=== PATIENT | male | born 1960 | race Caucasian/White ===

== ENCOUNTER → 2016-06-26 | Outpatient (CLI) | payer MEDICARE, MEDICAID ==
[~2016-06-26] MED LIST: ALLO300 PO; AMIT50TA3 PO; AMLO-512 PO; AMOX1TAB16 PO; BACTDSB PO; GABA-529 PO; LOSA50TA37 PO; OXYC-341 PO; SANTO TP
[2016-06-26 15:57] VITALS: BP 116/64
== END | disposition home or self-care (01) ==
LOC: HBOWC 14:02
PROVIDERS: ATTEND Emergency Medicine
DX: L89.314 Pressure ulcer of right buttock, stage 4 (principal); L89.324 Pressure ulcer of left buttock, stage 4; G82.20 Paraplegia, unspecified; I71.4 Abdominal aortic aneurysm, without rupture; I10 Essential (primary) hypertension; F17.210 Nicotine dependence, cigarettes, uncomplicated; Z86.718 Personal history of other venous thrombosis and embolism
CPT/HCPCS: 97597

== ENCOUNTER 2016-07-10 15:27 | Inpatient (IN) | payer MEDICARE, MEDICAID ==
[~2016-07-10] VITALS: Ht 180.3 cm; Wt 98.3 kg
[~2016-07-10 15:27] MED LIST changes: -AMIT50TA3 PO; -LIDOCAINE HCL 2% 5 ML JELLY TP ONE
[2016-07-10] MEDS ORDERED: AMIT50TA3 PO (15:58)
[2016-07-10] MEDS ORDERED: VANCOMYCIN HCL 1 GM/D5% WATER 200 ML IV ONE ×2 (16:30→23:00)
[2016-07-10 16:41] LABS: EOSINOPHILS % (AUTO) 1.1 % (1.0-6.0); HEMATOCRIT 35.2 % (41-53); HEMOGLOBIN 11.4 g/dL (13.5-17.5); LYMPHOCYTES # (AUTO) 1.3 K/uL (1.0-4.8); LYMPHOCYTES % (AUTO) 11.1 % (22.0-44.0); MEAN CORPUSCULAR HEMOGLOBIN 28.2 pg (26.0-34.0); MEAN CORPUSCULAR HGB CONC 32.4 G/dL (31.0-37.0); MEAN CORPUSCULAR VOLUME 87 fL (80-100); MONOCYTES # (AUTO) 0.7 K/uL (0.1-1.0); MONOCYTES % (AUTO) 5.9 % (2.0-9.0); NEUTROPHILS # (AUTO) 9.9 K/uL (1.8-7.7); NEUTROPHILS % (AUTO) 81.9 % (40.0-70.0); PLATELET COUNT (AUTO) 291 K/uL (150-450); RED BLOOD CELL COUNT(AUTO) 4.04 MIL/uL (4.50-5.90); RED CELL DISTRIBUTION WIDTH 15.7 % (11.5-14.5); WHITE BLOOD COUNT (AUTO) 12.1 K/uL (4.5-11.0)
[2016-07-10 16:50] LABS: ANION GAP 8 mmol/L (8-16); CALCIUM, TOTAL 8.6 mg/dL (8.8-10.5); CARBON DIOXIDE 26 mmol/L (22-29); CHLORIDE 98 mmol/L (98-107); GLOMERULAR FILTR. RATE CALC > 60 mL/min (>60); POTASSIUM 4.4 mmol/L (3.5-5.1); SODIUM SERUM 132 mmol/L (136-145); UREA NITROGEN, BLOOD 25 mg/dL (7-18)
[2016-07-10 16:56] LABS: ALANINE AMINOTRANSFERASE 32 U/L (12-78); ALBUMIN 2.8 g/dL (3.4-5.0); ASPARTATE AMINOTRANSFERASE 25 U/L (15-37); BILIRUBIN,TOTAL 0.2 mg/dL (0.1-1.0); TOTAL PROTEIN, SERUM 7.7 g/dL (6.4-8.2)
[2016-07-10] MEDS ORDERED: KETOROLAC TROMETHAMINE 30 MG/ML VIAL IVP ONE (17:15)
[2016-07-10] MEDS ORDERED: ONDANSETRON HCL 4 MG/2 ML VIAL IVP ONE (17:15)
[2016-07-10] MEDS ORDERED: MORPHINE SULFATE 4 MG/ML SYRINGE IVP ONE (17:15)
[2016-07-10] MEDS ORDERED: SODIUM CHLORIDE 0.9% 1,000 ML IV ONE (17:15)
[2016-07-10] MEDS ORDERED: ONDANSETRON HCL 4 MG/2 ML VIAL IVP PRN ×2 (17:30→22:00)
[2016-07-10] MEDS ORDERED: 0.9% SODIUM CHLORIDE 10 ML SYRINGE IVP PRN ×2 (17:30→22:00)
[2016-07-10] MEDS ORDERED: ACETAMINOPHEN 325 MG TABLET PO PRN ×2 (17:30→19:15)
[2016-07-10 18:59] VITALS: BP 127/61
[2016-07-10 19:59] VITALS: BP 112/49
[2016-07-10] MEDS ORDERED: INFLUENZA VIRUS VACCINE QVS 2016-17 (3YR+)/PF 60 MCG/0.5 ML SYRINGE IM ONE (20:00)
[2016-07-10] MEDS: GABAPENTIN 100 MG CAPSULE PO SCH (20:13)
[2016-07-10] MEDS ORDERED: AmLODIPine BESYLATE 10 MG TABLET PO SCH (21:00)
[2016-07-10] MEDS: SODIUM CHLORIDE 0.9% 1,000 ML IV SCH (22:34)
[2016-07-10] MEDS: DOCUSATE SODIUM 100 MG CAPSULE PO SCH (22:34)
[2016-07-10] MEDS: OxyCODONE HCL/ACETAMINOPHEN 5-325 MG TABLET PO PRN (22:35)
[2016-07-10 23:07] VITALS: BP 93/53
[2016-07-11] MEDS: OxyCODONE HCL/ACETAMINOPHEN 5-325 MG TABLET PO PRN ×3 (04:12→20:33)
[2016-07-11 04:18] VITALS: BP 95/49
[2016-07-11 08:09] VITALS: BP 106/63
[2016-07-11 08:21] LABS: BASOPHILS % (AUTO) 0.8 % (0.0-2.0); EOSINOPHILS % (AUTO) 2.3 % (1.0-6.0); HEMATOCRIT 34.3 % (41-53); HEMOGLOBIN 10.8 g/dL (13.5-17.5); LYMPHOCYTES # (AUTO) 1.4 K/uL (1.0-4.8); LYMPHOCYTES % (AUTO) 16.1 % (22.0-44.0); MEAN CORPUSCULAR HEMOGLOBIN 27.9 pg (26.0-34.0); MEAN CORPUSCULAR HGB CONC 31.6 G/dL (31.0-37.0); MEAN CORPUSCULAR VOLUME 88 fL (80-100); MONOCYTES # (AUTO) 0.7 K/uL (0.1-1.0); MONOCYTES % (AUTO) 7.9 % (2.0-9.0); NEUTROPHILS # (AUTO) 6.4 K/uL (1.8-7.7); NEUTROPHILS % (AUTO) 72.9 % (40.0-70.0); PLATELET COUNT (AUTO) 281 K/uL (150-450); RED BLOOD CELL COUNT(AUTO) 3.89 MIL/uL (4.50-5.90); RED CELL DISTRIBUTION WIDTH 15.6 % (11.5-14.5); WHITE BLOOD COUNT (AUTO) 8.7 K/uL (4.5-11.0)
[2016-07-11] MEDS: VANCOMYCIN HCL 1.25 GM in DEXTROSE 5%-WATER 250 ML IV SCH ×2 (08:31→20:34)
[2016-07-11] MEDS: ALLOPURINOL 300 MG TABLET PO SCH (08:32)
[2016-07-11] MEDS: PANTOPRAZOLE SODIUM 40 MG/VIAL IVP SCH (08:32)
[2016-07-11] MEDS: GABAPENTIN 100 MG CAPSULE PO SCH ×2 (08:32→20:33)
[2016-07-11] MEDS: AMITRIPTYLINE HCL 50 MG TABLET PO SCH (08:32)
[2016-07-11] MEDS: DOCUSATE SODIUM 100 MG CAPSULE PO SCH ×2 (08:32→20:33)
[2016-07-11] MEDS: HEPARIN SODIUM,PORCINE 5,000 UNITS/ML VIAL SQ SCH ×3 (08:33→20:33)
[2016-07-11] MEDS: SODIUM CHLORIDE 0.9% 1,000 ML IV SCH ×2 (08:38→16:23)
[2016-07-11 08:53] LABS: ANION GAP 7 mmol/L (8-16); CALCIUM, TOTAL 8.4 mg/dL (8.8-10.5); CARBON DIOXIDE 27 mmol/L (22-29); CHLORIDE 101 mmol/L (98-107); CREATININE 1.08 mg/dL (0.60-1.30); GLOMERULAR FILTR. RATE CALC > 60 mL/min (>60); POTASSIUM 4.3 mmol/L (3.5-5.1); SODIUM SERUM 135 mmol/L (136-145); UREA NITROGEN, BLOOD 24 mg/dL (7-18)
[2016-07-11] MEDS ORDERED: LOSARTAN POTASSIUM 50 MG TABLET PO SCH ×2 (09:00)
[2016-07-11 11:00] VITALS: BP 124/51
[2016-07-11] MEDS: MULTIVITAMINS WITH MINERALS, THERAPEUTIC TABLET PO SCH (13:32)
[2016-07-11] MEDS: AMINO ACIDS/PROTEIN HYDROLYS 30 ML TUBE PO SCH (18:12)
[2016-07-11 19:15] VITALS: BP 145/74
[2016-07-11 23:41] VITALS: BP 149/67
[2016-07-12 04:00] VITALS: BP 127/57
[2016-07-12] MEDS: SODIUM CHLORIDE 0.9% 1,000 ML IV SCH ×2 (06:19→20:05)
[2016-07-12 07:51] VITALS: BP 118/66
[2016-07-12 07:56] LABS: ANION GAP 8 mmol/L (8-16); CALCIUM, TOTAL 8.1 mg/dL (8.8-10.5); CARBON DIOXIDE 27 mmol/L (22-29); CHLORIDE 106 mmol/L (98-107); CREATININE 0.87 mg/dL (0.60-1.30); GLOMERULAR FILTR. RATE CALC > 60 mL/min (>60); POTASSIUM 4.3 mmol/L (3.5-5.1); SODIUM SERUM 141 mmol/L (136-145); UREA NITROGEN, BLOOD 15 mg/dL (7-18)
[2016-07-12] MEDS: AMINO ACIDS/PROTEIN HYDROLYS 30 ML TUBE PO SCH ×3 (08:00→18:29)
[2016-07-12] MEDS: VANCOMYCIN HCL 1.25 GM in DEXTROSE 5%-WATER 250 ML IV SCH ×2 (08:16→20:05)
[2016-07-12] MEDS: GABAPENTIN 100 MG CAPSULE PO SCH ×2 (08:18→20:05)
[2016-07-12] MEDS: ALLOPURINOL 300 MG TABLET PO SCH (08:18)
[2016-07-12] MEDS: DOCUSATE SODIUM 100 MG CAPSULE PO SCH ×2 (08:18→20:05)
[2016-07-12] MEDS: MULTIVITAMINS WITH MINERALS, THERAPEUTIC TABLET PO SCH (08:18)
[2016-07-12] MEDS: AMITRIPTYLINE HCL 50 MG TABLET PO SCH (08:18)
[2016-07-12] MEDS: PANTOPRAZOLE SODIUM 40 MG/VIAL IVP SCH (08:19)
[2016-07-12] MEDS: HEPARIN SODIUM,PORCINE 5,000 UNITS/ML VIAL SQ SCH ×3 (08:19→20:05)
[2016-07-12] MEDS: OxyCODONE HCL/ACETAMINOPHEN 5-325 MG TABLET PO PRN ×3 (08:28→20:05)
[2016-07-12 11:53] VITALS: BP 121/71
[2016-07-12 15:15] VITALS: BP 162/81
[2016-07-12 19:49] VITALS: BP 133/66
[2016-07-12 23:45] VITALS: BP 133/58
[2016-07-13] MEDS: OxyCODONE HCL/ACETAMINOPHEN 5-325 MG TABLET PO PRN ×5 (04:42→23:18)
[2016-07-13 05:22] VITALS: BP 146/72
[2016-07-13 06:18] LABS: BASOPHILS # (AUTO) 0.04 K/uL (0.00-0.20); BASOPHILS % (AUTO) 0.6 % (0.0-2.0); EOSINOPHILS # (AUTO) 0.07 K/uL (0.00-0.70); EOSINOPHILS % (AUTO) 1.01 % (1.0-6.0); HEMATOCRIT 33.6 % (41-53); LYMPHOCYTES # (AUTO) 1.6 K/uL (1.0-4.8); LYMPHOCYTES % (AUTO) 23.7 % (22.0-44.0); MEAN CORPUSCULAR HEMOGLOBIN 28.6 pg (26.0-34.0); MEAN CORPUSCULAR HGB CONC 32.7 G/dL (31.0-37.0); MEAN CORPUSCULAR VOLUME 87 fL (80-100); MONOCYTES # (AUTO) 0.7 K/uL (0.1-1.0); MONOCYTES % (AUTO) 10.1 % (2.0-9.0); NEUTROPHILS # (AUTO) 4.4 K/uL (1.8-7.7); NEUTROPHILS % (AUTO) 64.6 % (40.0-70.0); PLATELET COUNT (AUTO) 357 K/uL (150-450); RED BLOOD CELL COUNT(AUTO) 3.84 MIL/uL (4.50-5.90); RED CELL DISTRIBUTION WIDTH 16.2 % (11.5-14.5); WHITE BLOOD COUNT (AUTO) 6.8 K/uL (4.5-11.0)
[2016-07-13 06:44] LABS: ANION GAP 9 mmol/L (8-16); CALCIUM, TOTAL 8.3 mg/dL (8.8-10.5); CARBON DIOXIDE 27 mmol/L (22-29); CHLORIDE 103 mmol/L (98-107); CREATININE 0.92 mg/dL (0.60-1.30); GLOMERULAR FILTR. RATE CALC > 60 mL/min (>60); SODIUM SERUM 139 mmol/L (136-145); UREA NITROGEN, BLOOD 14 mg/dL (7-18)
[2016-07-13 07:20] VITALS: BP 155/89
[2016-07-13] MEDS: PANTOPRAZOLE SODIUM 40 MG/VIAL IVP SCH (08:33)
[2016-07-13] MEDS: DOCUSATE SODIUM 100 MG CAPSULE PO SCH ×2 (08:33→20:10)
[2016-07-13] MEDS: HEPARIN SODIUM,PORCINE 5,000 UNITS/ML VIAL SQ SCH ×3 (08:34→20:10)
[2016-07-13] MEDS: GABAPENTIN 100 MG CAPSULE PO SCH ×2 (08:34→20:10)
[2016-07-13] MEDS: ALLOPURINOL 300 MG TABLET PO SCH (08:34)
[2016-07-13] MEDS: MULTIVITAMINS WITH MINERALS, THERAPEUTIC TABLET PO SCH (08:34)
[2016-07-13] MEDS: AMITRIPTYLINE HCL 50 MG TABLET PO SCH (08:34)
[2016-07-13] MEDS: AMINO ACIDS/PROTEIN HYDROLYS 30 ML TUBE PO SCH ×2 (08:34→18:12)
[2016-07-13] MEDS: VANCOMYCIN HCL 1.25 GM in DEXTROSE 5%-WATER 250 ML IV SCH ×2 (08:35→20:10)
[2016-07-13] MEDS: SODIUM CHLORIDE 0.9% 1,000 ML IV SCH ×2 (08:36→11:54)
[2016-07-13] MEDS ORDERED: PHENYLEPHRINE/SHK LV/MIN OIL/PET 57 GM OINTMENT TP PRN (09:00)
[2016-07-13 11:16] VITALS: BP 156/73
[2016-07-13 16:22] VITALS: BP 148/69
[2016-07-13 19:08] VITALS: BP 157/87
[2016-07-13] MEDS: POTASSIUM CHL 20 MEQ/D5-0.45NS 1,000 ML IV SCH (23:18)
[2016-07-14 00:14] VITALS: BP 134/77
[2016-07-14] MEDS: OxyCODONE HCL/ACETAMINOPHEN 5-325 MG TABLET PO PRN ×5 (04:16→23:51)
[2016-07-14 04:21] VITALS: BP 146/87
[2016-07-14 06:36] LABS: ANION GAP 0 mmol/L (8-16); CALCIUM, TOTAL 8.5 mg/dL (8.8-10.5); CARBON DIOXIDE 30 mmol/L (22-29); CHLORIDE 103 mmol/L (98-107); CREATININE 0.94 mg/dL (0.60-1.30); GLOMERULAR FILTR. RATE CALC > 60 mL/min (>60); POTASSIUM 4.9 mmol/L (3.5-5.1); SODIUM SERUM 133 mmol/L (136-145); UREA NITROGEN, BLOOD 13 mg/dL (7-18)
[2016-07-14 07:51] VITALS: BP 125/80
[2016-07-14] MEDS: AMINO ACIDS/PROTEIN HYDROLYS 30 ML TUBE PO SCH ×2 (08:00→18:00)
[2016-07-14] MEDS: PANTOPRAZOLE SODIUM 40 MG/VIAL IVP SCH (08:06)
[2016-07-14] MEDS: VANCOMYCIN HCL 1.25 GM in DEXTROSE 5%-WATER 250 ML IV SCH (08:06)
[2016-07-14] MEDS: DOCUSATE SODIUM 100 MG CAPSULE PO SCH ×2 (09:00→20:20)
[2016-07-14] MEDS: ALLOPURINOL 300 MG TABLET PO SCH (09:00)
[2016-07-14] MEDS: HEPARIN SODIUM,PORCINE 5,000 UNITS/ML VIAL SQ SCH ×3 (09:00→20:20)
[2016-07-14] MEDS: GABAPENTIN 100 MG CAPSULE PO SCH ×2 (09:00→20:20)
[2016-07-14] MEDS ORDERED: RINGERS SOLUTION,LACTATED 1,000 ML IV ONE ×2 (10:16→12:30)
[2016-07-14] MEDS ORDERED: BACITRACIN 50,000 UNITS/VIAL ONE ×2 (10:26→11:36)
[2016-07-14] MEDS ORDERED: SODIUM CHLORIDE 0.9% 10 ML ONE ×2 (10:26→11:35)
[2016-07-14] MEDS ORDERED: SODIUM CHLORIDE 0.9% 1,000 ML IV ONE (10:26)
[2016-07-14] MEDS ORDERED: FentaNYL CITRATE-PF 100 MCG/2 ML VIAL IVP PRN ×2 (10:45→11:30)
[2016-07-14] MEDS ORDERED: MEPERIDINE-PF 25 MG/ML SYRINGE IVP PRN ×2 (10:45→11:30)
[2016-07-14] MEDS ORDERED: HYDROmorphone 2 MG/ML SYRINGE IVP PRN ×2 (10:45→11:30)
[2016-07-14] MEDS ORDERED: SODIUM HYPOCHLORITE 0.25% [HALF STRENGTH] 473 ML SOLUTION TP ONE ×2 (11:15→11:45)
[2016-07-14] MEDS ORDERED: SODIUM CHLORIDE 0.9% 2,000 ML IV ONE (11:30)
[2016-07-14] MEDS ORDERED: MIDAZOLAM HCL 2 MG/2 ML VIAL IVP ONE (12:00)
[2016-07-14] MEDS ORDERED: GLYCOPYRROLATE 0.2 MG/ML VIAL IM ONE (12:00)
[2016-07-14] MEDS ORDERED: LIDOCAINE HCL/PF 2% 5 ML VIAL INJ ONE (12:00)
[2016-07-14] MEDS ORDERED: NEOSTIGMINE METHYLSULFATE 1 MG/ML 10 ML VIAL IVP ONE (12:00)
[2016-07-14] MEDS ORDERED: FentaNYL CITRATE-PF 100 MCG/2 ML VIAL IVP ONE (12:00)
[2016-07-14] MEDS ORDERED: SUCCINYLCHOLINE CHLORIDE 20 MG/ML 10 ML VIAL IVP ONE (12:00)
[2016-07-14] MEDS ORDERED: ROCURONIUM BROMIDE 10 MG/ML 5 ML VIAL IVP ONE (12:00)
[2016-07-14] MEDS ORDERED: ONDANSETRON HCL 4 MG/2 ML VIAL IVP ONE (12:00)
[2016-07-14] MEDS ORDERED: PROPOFOL 1% 20 ML VIAL IVP ONE (12:00)
[2016-07-14 14:37] VITALS: BP 152/75
[2016-07-14] MEDS: CefTRIAXone 1 GM/DEXTROSE 50 ML IV SCH (15:08)
[2016-07-14 16:23] VITALS: BP 158/87
[2016-07-14] MEDS: AMITRIPTYLINE HCL 50 MG TABLET PO SCH (17:08)
[2016-07-14] MEDS: POTASSIUM CHL 20 MEQ/D5-0.45NS 1,000 ML IV SCH (17:08)
[2016-07-14] MEDS: MULTIVITAMINS WITH MINERALS, THERAPEUTIC TABLET PO SCH (17:08)
[2016-07-14 19:52] VITALS: BP 163/95
[2016-07-14] MEDS ORDERED: OXYGEN THERAPY IH SCH (20:00)
[2016-07-14] MEDS: SODIUM CHLORIDE 0.9% 1,000 ML IV SCH (23:52)
[2016-07-15] VITALS (7 sets, daily range): BP systolic 125–164; BP diastolic 59–84
[2016-07-15] MEDS: OxyCODONE HCL/ACETAMINOPHEN 5-325 MG TABLET PO PRN ×3 (04:21→14:05)
[2016-07-15 06:26] LABS: BASOPHILS % (AUTO) 0.5 % (0.0-2.0); EOSINOPHILS % (AUTO) 0.3 % (1.0-6.0); HEMATOCRIT 30.4 % (41-53); HEMOGLOBIN 9.8 g/dL (13.5-17.5); LYMPHOCYTES # (AUTO) 1.3 K/uL (1.0-4.8); LYMPHOCYTES % (AUTO) 19.7 % (22.0-44.0); MEAN CORPUSCULAR HEMOGLOBIN 28.1 pg (26.0-34.0); MEAN CORPUSCULAR HGB CONC 32.1 G/dL (31.0-37.0); MEAN CORPUSCULAR VOLUME 88 fL (80-100); MONOCYTES # (AUTO) 0.6 K/uL (0.1-1.0); MONOCYTES % (AUTO) 9.4 % (2.0-9.0); NEUTROPHILS # (AUTO) 4.6 K/uL (1.8-7.7); NEUTROPHILS % (AUTO) 70.1 % (40.0-70.0); PLATELET COUNT (AUTO) 348 K/uL (150-450); RED BLOOD CELL COUNT(AUTO) 3.48 MIL/uL (4.50-5.90); RED CELL DISTRIBUTION WIDTH 15.2 % (11.5-14.5); WHITE BLOOD COUNT (AUTO) 6.6 K/uL (4.5-11.0)
[2016-07-15 06:40] LABS: ANION GAP 7 mmol/L (8-16); CALCIUM, TOTAL 8.5 mg/dL (8.8-10.5); CARBON DIOXIDE 29 mmol/L (22-29); CHLORIDE 101 mmol/L (98-107); CREATININE 1.15 mg/dL (0.60-1.30); GLOMERULAR FILTR. RATE CALC > 60 mL/min (>60); POTASSIUM 4.2 mmol/L (3.5-5.1); SODIUM SERUM 137 mmol/L (136-145); UREA NITROGEN, BLOOD 16 mg/dL (7-18)
[2016-07-15] MEDS: AMINO ACIDS/PROTEIN HYDROLYS 30 ML TUBE PO SCH ×2 (08:00→12:46)
[2016-07-15] MEDS: OXYGEN THERAPY IH SCH (08:00)
[2016-07-15] MEDS: PANTOPRAZOLE SODIUM 40 MG/VIAL IVP SCH (08:51)
[2016-07-15] MEDS: GABAPENTIN 100 MG CAPSULE PO SCH ×2 (08:51→21:00)
[2016-07-15] MEDS: MULTIVITAMINS WITH MINERALS, THERAPEUTIC TABLET PO SCH (08:51)
[2016-07-15] MEDS: HEPARIN SODIUM,PORCINE 5,000 UNITS/ML VIAL SQ SCH ×3 (08:51→21:00)
[2016-07-15] MEDS: DOCUSATE SODIUM 100 MG CAPSULE PO SCH ×2 (08:52→21:00)
[2016-07-15] MEDS: AMITRIPTYLINE HCL 50 MG TABLET PO SCH (08:59)
[2016-07-15] MEDS: ALLOPURINOL 300 MG TABLET PO SCH (09:00)
[2016-07-15] MEDS ORDERED: SODIUM HYPOCHLORITE 0.25% [HALF STRENGTH] 473 ML SOLUTION TP ONE (10:45)
[2016-07-15] MEDS: CefTRIAXone 1 GM/DEXTROSE 50 ML IV SCH (13:43)
[2016-07-15] MEDS: MORPHINE SULFATE 2 MG/ML SYRINGE IVP PRN ×2 (19:30→23:30)
[2016-07-16] MEDS: MORPHINE SULFATE 2 MG/ML SYRINGE IVP PRN ×4 (03:32→19:46)
[2016-07-16 04:25] VITALS: BP 161/70
[2016-07-16] MEDS: OxyCODONE HCL/ACETAMINOPHEN 5-325 MG TABLET PO PRN ×2 (05:58→10:31)
[2016-07-16 07:03] LABS: ANION GAP 5 mmol/L (8-16); CALCIUM, TOTAL 8.5 mg/dL (8.8-10.5); CARBON DIOXIDE 31 mmol/L (22-29); CHLORIDE 103 mmol/L (98-107); CREATININE 0.87 mg/dL (0.60-1.30); GLOMERULAR FILTR. RATE CALC > 60 mL/min (>60); POTASSIUM 4.2 mmol/L (3.5-5.1); SODIUM SERUM 139 mmol/L (136-145); UREA NITROGEN, BLOOD 15 mg/dL (7-18)
[2016-07-16] MEDS: OXYGEN THERAPY IH SCH (08:00)
[2016-07-16 08:08] VITALS: BP 150/63
[2016-07-16] MEDS: AMITRIPTYLINE HCL 50 MG TABLET PO SCH ×2 (09:00→09:15)
[2016-07-16] MEDS: ALLOPURINOL 300 MG TABLET PO SCH ×2 (09:00→09:14)
[2016-07-16] MEDS: GABAPENTIN 100 MG CAPSULE PO SCH ×2 (09:14→19:46)
[2016-07-16] MEDS: DOCUSATE SODIUM 100 MG CAPSULE PO SCH ×2 (09:15→19:46)
[2016-07-16] MEDS: HEPARIN SODIUM,PORCINE 5,000 UNITS/ML VIAL SQ SCH ×3 (09:15→19:46)
[2016-07-16] MEDS: PANTOPRAZOLE SODIUM 40 MG/VIAL IVP SCH (09:15)
[2016-07-16] MEDS: MULTIVITAMINS WITH MINERALS, THERAPEUTIC TABLET PO SCH (09:15)
[2016-07-16] MEDS: AMINO ACIDS/PROTEIN HYDROLYS 30 ML TUBE PO SCH ×2 (09:17→12:09)
[2016-07-16 11:38] VITALS: BP 153/78
[2016-07-16] MEDS: SODIUM CHLORIDE 0.9% 1,000 ML IV SCH (12:16)
[2016-07-16] MEDS: CefTRIAXone 1 GM/DEXTROSE 50 ML IV SCH (14:34)
[2016-07-16 16:35] VITALS: BP 147/73
[2016-07-16 19:47] VITALS: BP 148/75
[2016-07-17] VITALS (8 sets, daily range): BP systolic 121–177; BP diastolic 54–93
[2016-07-17] MEDS: MORPHINE SULFATE 2 MG/ML SYRINGE IVP PRN ×4 (00:56→23:49)
[2016-07-17] MEDS: SODIUM CHLORIDE 0.9% 1,000 ML IV SCH ×2 (04:00→14:23)
[2016-07-17 06:28] LABS: ANION GAP 8 mmol/L (8-16); CALCIUM, TOTAL 8.7 mg/dL (8.8-10.5); CARBON DIOXIDE 30 mmol/L (22-29); CHLORIDE 104 mmol/L (98-107); CREATININE 0.81 mg/dL (0.60-1.30); GLOMERULAR FILTR. RATE CALC > 60 mL/min (>60); POTASSIUM 3.9 mmol/L (3.5-5.1); SODIUM SERUM 142 mmol/L (136-145); UREA NITROGEN, BLOOD 13 mg/dL (7-18)
[2016-07-17] MEDS: OXYGEN THERAPY IH SCH ×2 (08:00→20:00)
[2016-07-17] MEDS: AMINO ACIDS/PROTEIN HYDROLYS 30 ML TUBE PO SCH ×2 (08:14→12:10)
[2016-07-17] MEDS: PANTOPRAZOLE SODIUM 40 MG/VIAL IVP SCH (08:14)
[2016-07-17] MEDS: MULTIVITAMINS WITH MINERALS, THERAPEUTIC TABLET PO SCH (08:15)
[2016-07-17] MEDS: DOCUSATE SODIUM 100 MG CAPSULE PO SCH ×2 (08:15→20:29)
[2016-07-17] MEDS: HEPARIN SODIUM,PORCINE 5,000 UNITS/ML VIAL SQ SCH ×3 (08:15→20:30)
[2016-07-17] MEDS: GABAPENTIN 100 MG CAPSULE PO SCH ×2 (08:15→20:29)
[2016-07-17] MEDS: AMITRIPTYLINE HCL 50 MG TABLET PO SCH (08:15)
[2016-07-17] MEDS: ALLOPURINOL 300 MG TABLET PO SCH (08:15)
[2016-07-17] MEDS ORDERED: HYDROmorphone 2 MG/ML SYRINGE IVP ONE (08:30)
[2016-07-17] MEDS: OxyCODONE HCL/ACETAMINOPHEN 10-325 MG TABLET PO PRN ×2 (12:10→18:26)
[2016-07-17] MEDS: CefTRIAXone 1 GM/DEXTROSE 50 ML IV SCH (14:23)
[2016-07-17] MEDS ORDERED: CefTRIAXone 1 GM/DEXTROSE 50 ML IV ONE (18:00)
[2016-07-18 04:35] VITALS: BP 135/65
[2016-07-18] MEDS: SODIUM CHLORIDE 0.9% 1,000 ML IV SCH ×2 (04:43→10:00)
[2016-07-18 07:47] VITALS: BP 154/64
[2016-07-18] MEDS: OXYGEN THERAPY IH SCH ×2 (07:51→20:00)
[2016-07-18] MEDS: AMITRIPTYLINE HCL 50 MG TABLET PO SCH (07:59)
[2016-07-18] MEDS: ALLOPURINOL 300 MG TABLET PO SCH (07:59)
[2016-07-18] MEDS: GABAPENTIN 100 MG CAPSULE PO SCH ×2 (07:59→21:03)
[2016-07-18] MEDS: HEPARIN SODIUM,PORCINE 5,000 UNITS/ML VIAL SQ SCH ×3 (08:00→21:04)
[2016-07-18] MEDS: OxyCODONE HCL/ACETAMINOPHEN 10-325 MG TABLET PO PRN ×2 (08:00→18:33)
[2016-07-18] MEDS: MULTIVITAMINS WITH MINERALS, THERAPEUTIC TABLET PO SCH (08:00)
[2016-07-18] MEDS: DOCUSATE SODIUM 100 MG CAPSULE PO SCH ×2 (08:00→21:03)
[2016-07-18] MEDS: PANTOPRAZOLE SODIUM 40 MG/VIAL IVP SCH (08:00)
[2016-07-18] MEDS: AMINO ACIDS/PROTEIN HYDROLYS 30 ML TUBE PO SCH ×2 (08:02→12:00)
[2016-07-18 11:15] VITALS: BP 152/72
[2016-07-18] MEDS ORDERED: SODIUM CHLORIDE 0.9% IRRIG BTL 1,000 ML IRRIG ONE ×2 (13:36→13:40)
[2016-07-18] MEDS: MORPHINE SULFATE 2 MG/ML SYRINGE IVP PRN ×2 (13:44→21:04)
[2016-07-18 15:31] VITALS: BP 156/89
[2016-07-18] MEDS: CefTRIAXone SODIUM 2 GM in DEXTROSE 5%-WATER 50 ML IV SCH (16:35)
[2016-07-18] MEDS ORDERED: CefTRIAXone 1 GM/DEXTROSE 50 ML IV SCH (17:00)
[2016-07-18 19:25] VITALS: BP 151/68
[2016-07-18 23:15] VITALS: BP 136/51
[2016-07-19] MEDS: MORPHINE SULFATE 2 MG/ML SYRINGE IVP PRN ×4 (01:04→20:03)
[2016-07-19 04:39] VITALS: BP 152/88
[2016-07-19 07:47] VITALS: BP 152/80
[2016-07-19] MEDS: OXYGEN THERAPY IH SCH ×2 (08:00→20:00)
[2016-07-19] MEDS: SODIUM CHLORIDE 0.9% 1,000 ML IV SCH ×2 (08:00→16:25)
[2016-07-19] MEDS: AMINO ACIDS/PROTEIN HYDROLYS 30 ML TUBE PO SCH ×2 (08:35→12:07)
[2016-07-19] MEDS: AMITRIPTYLINE HCL 50 MG TABLET PO SCH (08:37)
[2016-07-19] MEDS: DOCUSATE SODIUM 100 MG CAPSULE PO SCH ×2 (08:37→20:03)
[2016-07-19] MEDS: GABAPENTIN 100 MG CAPSULE PO SCH ×2 (08:37→20:03)
[2016-07-19] MEDS: PANTOPRAZOLE SODIUM 40 MG/VIAL IVP SCH (08:38)
[2016-07-19] MEDS: MULTIVITAMINS WITH MINERALS, THERAPEUTIC TABLET PO SCH (08:38)
[2016-07-19] MEDS: HEPARIN SODIUM,PORCINE 5,000 UNITS/ML VIAL SQ SCH ×3 (08:38→20:03)
[2016-07-19] MEDS: ALLOPURINOL 300 MG TABLET PO SCH (08:38)
[2016-07-19 12:01] VITALS: BP 128/62
[2016-07-19 15:47] VITALS: BP 145/75
[2016-07-19] MEDS: OxyCODONE HCL/ACETAMINOPHEN 10-325 MG TABLET PO PRN (16:21)
[2016-07-19] MEDS: CefTRIAXone SODIUM 2 GM in DEXTROSE 5%-WATER 50 ML IV SCH (16:25)
[2016-07-19 19:54] VITALS: BP 125/57
[2016-07-19 23:37] VITALS: BP 115/64
[2016-07-20 04:21] VITALS: BP 128/64
[2016-07-20] MEDS: MORPHINE SULFATE 2 MG/ML SYRINGE IVP PRN ×4 (04:31→21:14)
[2016-07-20 07:30] VITALS: BP 142/62
[2016-07-20] MEDS: AMINO ACIDS/PROTEIN HYDROLYS 30 ML TUBE PO SCH ×2 (08:00→12:00)
[2016-07-20] MEDS: DOCUSATE SODIUM 100 MG CAPSULE PO SCH ×2 (09:00→09:08)
[2016-07-20] MEDS: GABAPENTIN 100 MG CAPSULE PO SCH ×2 (09:08→23:40)
[2016-07-20] MEDS: HEPARIN SODIUM,PORCINE 5,000 UNITS/ML VIAL SQ SCH ×3 (09:08→23:40)
[2016-07-20] MEDS: AMITRIPTYLINE HCL 50 MG TABLET PO SCH (09:08)
[2016-07-20] MEDS: MULTIVITAMINS WITH MINERALS, THERAPEUTIC TABLET PO SCH (09:08)
[2016-07-20] MEDS: ALLOPURINOL 300 MG TABLET PO SCH (09:08)
[2016-07-20] MEDS: PANTOPRAZOLE SODIUM 40 MG/VIAL IVP SCH (09:09)
[2016-07-20 11:16] VITALS: BP 116/70
[2016-07-20 15:43] LABS: BASOPHILS # (AUTO) 0.06 K/uL (0.00-0.20); BASOPHILS % (AUTO) 0.8 % (0.0-2.0); EOSINOPHILS # (AUTO) 0.02 K/uL (0.00-0.70); EOSINOPHILS % (AUTO) 0.22 % (1.0-6.0); HEMATOCRIT 30.3 % (41-53); LYMPHOCYTES # (AUTO) 1.5 K/uL (1.0-4.8); LYMPHOCYTES % (AUTO) 18.7 % (22.0-44.0); MEAN CORPUSCULAR HEMOGLOBIN 28.9 pg (26.0-34.0); MEAN CORPUSCULAR HGB CONC 33.1 G/dL (31.0-37.0); MEAN CORPUSCULAR VOLUME 87 fL (80-100); MONOCYTES # (AUTO) 0.8 K/uL (0.1-1.0); MONOCYTES % (AUTO) 10.6 % (2.0-9.0); NEUTROPHILS # (AUTO) 5.5 K/uL (1.8-7.7); NEUTROPHILS % (AUTO) 69.6 % (40.0-70.0); PLATELET COUNT (AUTO) 294 K/uL (150-450); RED BLOOD CELL COUNT(AUTO) 3.47 MIL/uL (4.50-5.90); WHITE BLOOD COUNT (AUTO) 7.8 K/uL (4.5-11.0)
[2016-07-20 15:53] LABS: ANION GAP 5 mmol/L (8-16); CALCIUM, TOTAL 8.6 mg/dL (8.8-10.5); CARBON DIOXIDE 30 mmol/L (22-29); CHLORIDE 104 mmol/L (98-107); GLOMERULAR FILTR. RATE CALC > 60 mL/min (>60); POTASSIUM 4.2 mmol/L (3.5-5.1); SODIUM SERUM 139 mmol/L (136-145); UREA NITROGEN, BLOOD 15 mg/dL (7-18)
[2016-07-20 16:00] VITALS: BP 140/56
[2016-07-20 16:05] LABS: ALANINE AMINOTRANSFERASE 28 U/L (12-78); ALBUMIN 2.3 g/dL (3.4-5.0); ASPARTATE AMINOTRANSFERASE 17 U/L (15-37); BILIRUBIN,TOTAL 0.2 mg/dL (0.1-1.0); TOTAL PROTEIN, SERUM 7.1 g/dL (6.4-8.2)
[2016-07-20] MEDS: CefTRIAXone SODIUM 2 GM in DEXTROSE 5%-WATER 50 ML IV SCH (16:16)
[2016-07-20 19:52] VITALS: BP 138/71
[2016-07-21] VITALS: BP 136/59
[2016-07-21] MEDS: MORPHINE SULFATE 2 MG/ML SYRINGE IVP PRN ×4 (01:16→16:37)
[2016-07-21 05:34] VITALS: BP 124/60
[2016-07-21 07:50] VITALS: BP 137/79
[2016-07-21] MEDS: OXYGEN THERAPY IH SCH (08:00)
[2016-07-21] MEDS: SODIUM CHLORIDE 0.9% 1,000 ML IV SCH ×2 (08:00→18:00)
[2016-07-21] MEDS: DOCUSATE SODIUM 100 MG CAPSULE PO SCH (08:55)
[2016-07-21] MEDS: HEPARIN SODIUM,PORCINE 5,000 UNITS/ML VIAL SQ SCH ×2 (08:55→16:37)
[2016-07-21] MEDS: MULTIVITAMINS WITH MINERALS, THERAPEUTIC TABLET PO SCH (08:56)
[2016-07-21] MEDS: PANTOPRAZOLE SODIUM 40 MG/VIAL IVP SCH (08:56)
[2016-07-21] MEDS: AMITRIPTYLINE HCL 50 MG TABLET PO SCH (08:56)
[2016-07-21] MEDS: AMINO ACIDS/PROTEIN HYDROLYS 30 ML TUBE PO SCH ×2 (08:56→12:00)
[2016-07-21] MEDS: GABAPENTIN 100 MG CAPSULE PO SCH (08:56)
[2016-07-21] MEDS: ALLOPURINOL 300 MG TABLET PO SCH (08:56)
[2016-07-21] MEDS: OxyCODONE HCL/ACETAMINOPHEN 10-325 MG TABLET PO PRN ×2 (08:56→19:38)
[2016-07-21 11:10] VITALS: BP 131/63
[2016-07-21 15:59] VITALS: BP 153/65
[2016-07-21] MEDS: CefTRIAXone SODIUM 2 GM in DEXTROSE 5%-WATER 50 ML IV SCH (16:37)
[2016-07-21 19:12] VITALS: BP 160/65
== END 2016-07-21 20:10 | DRG 853 ==
LOC: EMS 15:33 → 6N 17:39
PROVIDERS: ADMIT Internal Medicine; ATTEND Internal Medicine
PROC: 0JDM0ZZ Extraction of Left Upper Leg Subcutaneous Tissue and Fascia, Open Approach (ICD-10-PCS; 2016-07-14)
PROC: 0JDL0ZZ Extraction of Right Upper Leg Subcutaneous Tissue and Fascia, Open Approach (ICD-10-PCS; principal; 2016-07-14 11:05)
PROC: 3E0234Z Introduction of Serum, Toxoid and Vaccine into Muscle, Percutaneous Approach (ICD-10-PCS; 2016-07-19)
DX: A41.9 Sepsis, unspecified organism (principal); E43 Unspecified severe protein-calorie malnutrition; L89.324 Pressure ulcer of left buttock, stage 4; L89.314 Pressure ulcer of right buttock, stage 4; G82.20 Paraplegia, unspecified; E87.1 Hypo-osmolality and hyponatremia; M86.659 Other chronic osteomyelitis, unspecified thigh; L03.317 Cellulitis of buttock; I10 Essential (primary) hypertension; N31.9 Neuromuscular dysfunction of bladder, unspecified; B96.20 Unspecified Escherichia coli [E. coli] as the cause of diseases classified elsewhere; E11.622 Type 2 diabetes mellitus with other skin ulcer; Z68.30 Body mass index [BMI] 30.0-30.9, adult; Z23 Encounter for immunization; E11.69 Type 2 diabetes mellitus with other specified complication; D64.9 Anemia, unspecified; Z88.1 Allergy status to other antibiotic agents; Z74.01 Bed confinement status; Z86.19 Personal history of other infectious and parasitic diseases; Z86.79 Personal history of other diseases of the circulatory system; Z79.899 Other long term (current) drug therapy; Z79.84 Long term (current) use of oral hypoglycemic drugs; Z98.890 Other specified postprocedural states
CPT/HCPCS: 83605; 85651; 86140; 87040; 87070; 87081; 87205; 88304; 90471; 96365; 96366; 96375; 99285; C9113; J0330; J0696; J1170; J1644; J1885; J2250; J2270; J2405; J2704; J3010; J3370; J3480; J3490; J7030; J7060; J7120

== ENCOUNTER → 2016-07-10 | Outpatient (CLI) | payer MEDICARE, MEDICAID ==
[~2016-07-10] MED LIST changes: -AMOX1TAB16 PO; +LIDOCAINE HCL 2% 5 ML JELLY TP ONE
[2016-07-10 14:52] VITALS: BP 134/78
== END | disposition home or self-care (01) ==
LOC: HBOWC 14:16
PROVIDERS: ATTEND Emergency Medicine
DX: L89.314 Pressure ulcer of right buttock, stage 4 (principal); L89.324 Pressure ulcer of left buttock, stage 4; F32.9 Major depressive disorder, single episode, unspecified; G82.20 Paraplegia, unspecified; I71.4 Abdominal aortic aneurysm, without rupture; I10 Essential (primary) hypertension; I48.91 Unspecified atrial fibrillation; M86.60 Other chronic osteomyelitis, unspecified site; F17.210 Nicotine dependence, cigarettes, uncomplicated; Z86.718 Personal history of other venous thrombosis and embolism